=== PATIENT | female | born 1970 | race Caucasian/White ===

== ENCOUNTER 2017-08-22 05:20 | Day surgery (SDC) | payer BC ==
[~2017-08-22] VITALS: Ht 144.8 cm; Wt 78.9 kg
[~2017-08-22 05:20] MED LIST: TYLENOL EXTRA500 MG PO; WOMEN'S DAILY1 EAC4 PO
[2017-08-22 06:03] VITALS: BP 159/88
[2017-08-22] MEDS ORDERED: MOTRIN600 MG PO (08:22)
[2017-08-22] MEDS ORDERED: NORCO 5/3251 TABLET PO (08:22)
[2017-08-22 09:25] VITALS: BP 141/61
[2017-08-22 10:24] VITALS: BP 132/69
== END 2017-08-22 10:25 | disposition home or self-care (01) ==
LOC: SDC 05:20
PROC: 0UDB8ZX Extraction of Endometrium, Via Natural or Artificial Opening Endoscopic, Diagnostic (ICD-10-PCS; principal; 2017-08-22)
DX: R93.8 Abnormal findings on diagnostic imaging of other specified body structures (principal); N88.2 Stricture and stenosis of cervix uteri; D25.2 Subserosal leiomyoma of uterus; N92.1 Excessive and frequent menstruation with irregular cycle; E66.9 Obesity, unspecified; Z68.43 Body mass index [BMI] 50.0-59.9, adult; Z98.51 Tubal ligation status; Z87.891 Personal history of nicotine dependence; Z82.3 Family history of stroke; Z82.49 Family history of ischemic heart disease and other diseases of the circulatory system; Z80.9 Family history of malignant neoplasm, unspecified; Z91.013 Allergy to seafood; Z91.041 Radiographic dye allergy status; Z91.09 Other allergy status, other than to drugs and biological substances
CPT/HCPCS: 88305; J1100; J1885; J2250; J2405; J3010